=== PATIENT | male | born 1955 | race Caucasian/White ===

== ENCOUNTER 2016-07-08 16:49 | Emergency (ER) | payer BC ==
[~2016-07-08] VITALS: Ht 177.8 cm; Wt 93.2 kg
[~2016-07-08 16:49] MED LIST: LIPITOR 10MG10 MG PO; LORTAB 5/500 501 TAB PO; MOTRIN 800800 MG/TAB PO; NORCO 325 MG-51 TAB PO; ZESTRIL 10MG10 MG PO; [UNRECOGNIZED DRUG - OTHER]
[2016-07-08 16:57] VITALS: BP 128/87; TEMP 98.1
[2016-07-08 18:12] VITALS: PULSE 86
== END 2016-07-08 18:18 | disposition home or self-care (01) ==
LOC: COL.ER 16:49
DX: S61.211A Laceration without foreign body of left index finger without damage to nail, initial encounter (principal); Z23 Encounter for immunization; W29.8XXA Contact with other powered hand tools and household machinery, initial encounter; Y92.009 Unspecified place in unspecified non-institutional (private) residence as the place of occurrence of the external cause

== ENCOUNTER 2016-07-15 11:25 | Emergency (ER) | payer BC ==
[2016-07-15 11:29] VITALS: BP 129/98; PULSE 80; TEMP 98.7
== END 2016-07-15 11:31 | disposition home or self-care (01) ==
LOC: COL.ER 11:25
DX: Z48.02 Encounter for removal of sutures (principal)

== ENCOUNTER 2017-01-13 22:53 | Emergency (ER) | payer BC ==
[~2017-01-13] VITALS: Ht 177.8 cm; Wt 93.2 kg
[2017-01-13 22:55] VITALS: TEMP 98.8
[2017-01-13 23:26] LABS: PH 5 (5-8); SQUAMOUS EPITHELIAL 0-2 /hpf; URINE APPEARANCE Hazy; URINE BACTERIA None Seen /hpf; URINE BILIRUBIN Negative (NEGATIVE); URINE BLOOD 3+ (NEGATIVE); URINE COLOR Yellow; URINE GLUCOSE Negative (NEGATIVE); URINE KETONE Trace (NEGATIVE); URINE RBC >50 /hpf; URINE UROBILINOGEN Negative (NEGATIVE); URINE WBC None Seen /hpf
[2017-01-13 23:29] LABS: BASO # 0.1 (0.0-0.2); BASO % 0.7 % (0.0-2.0); EOS # 0.1 (0.0-0.7); EOS % 0.9 % (0-4.0); GRAN # 4.9 (1.4-6.5); GRAN % 60.1 % (42.2-75.2); HEMATOCRIT 44.4 % (42.0-52.0); HEMOGLOBIN 15.3 g/dl (13.5-18.0); LYMPH % 25.3 % (20.0-51.0); MEAN CELL VOLUME 91 fl (80.0-100.0); MEAN CORPUSCULAR HEMOGLOBIN 31 pg (27.0-31.0); MEAN CORPUSCULAR HGB CONC 35 g/dl (33.0-37.0); MEAN PLATELET VOLUME 9.8 fl (7.4-10.4); MONO % 12.8 % (1.7-9.3); PLATELET COUNT 196 K/mm3 (130-400); RED BLOOD COUNT 4.88 M/mm3 (4.20-5.60); REDCELL DISTRIBUTION WIDTH-CV 12.8 % (11.5-14.5); WHITE BLOOD COUNT 8.1 K/mm3 (4.8-10.8)
[2017-01-13 23:42] LABS: ADJUSTED CALCIUM 9.2 mg/dL (8.4-10.2); ALANINE AMINOTRANSFERASE 29 U/L (21-72); ALBUMIN 4.6 gm/dL (3.5-5.0); ALKALINE PHOSPHATASE 128 U/L (50-136); ANION GAP 12 mmol/L (7-16); BILIRUBIN,TOTAL 0.8 mg/dL (0.0-1.0); BLOOD UREA NITROGEN 16 mg/dL (9-20); C-REACTIVE PROTEIN < 0.5 mg/dL (0.0-0.9); CALCIUM 9.7 mg/dL (8.4-10.2); CARBON DIOXIDE 23 mmol/L (22-30); CHLORIDE 104 mmol/L (98-107); CREATININE, serum 1.44 mg/dL (0.66-1.25); GLUCOSE 135 mg/dL (74-106); POTASSIUM 3.8 mmol/L (3.4-5.0); SODIUM 140 mmol/L (137-145); TOTAL PROTEIN 7.5 gm/dL (6.4-8.2)
[2017-01-14] MEDS ORDERED: PERCOCET 325 MG1 TA2 PO (01:40)
[2017-01-14 01:52] VITALS: BP 142/86; PULSE 80
== END 2017-01-14 01:55 | disposition home or self-care (01) ==
LOC: COL.ER 22:53
PROVIDERS: Nurse Practitioner
DX: N20.1 Calculus of ureter (principal); I10 Essential (primary) hypertension; E78.5 Hyperlipidemia, unspecified
CPT/HCPCS: J1170; J1885; J7030

== ENCOUNTER 2017-01-15 13:18 | Observation (INO) | payer BC ==
[2017-01-15] VITALS (10 sets, daily range): BP systolic 113–148; BP diastolic 76–94; PULSE 53–74; TEMP 97.8–98.9
[~2017-01-15] VITALS: Ht 177.8 cm; Wt 86.4 kg
[~2017-01-15 13:18] MED LIST changes: +PERCOCET 325 MG1 TA2 PO
[2017-01-15 21:16] LABS: PH 7 (5-8); SQUAMOUS EPITHELIAL 0-2 /hpf; URINE APPEARANCE Hazy; URINE BACTERIA Rare /hpf; URINE BILIRUBIN Negative (NEGATIVE); URINE BLOOD 3+ (NEGATIVE); URINE COLOR Yellow; URINE GLUCOSE Negative (NEGATIVE); URINE KETONE Negative (NEGATIVE); URINE RBC >50 /hpf; URINE UROBILINOGEN Negative (NEGATIVE); URINE WBC 20-50 /hpf
[2017-01-16 00:55] VITALS: BP 114/68; PULSE 55
[2017-01-16 06:07] VITALS: BP 100/68; PULSE 60; TEMP 98
[2017-01-16 09:25] VITALS: BP 126/74; PULSE 55; TEMP 98.5
[2017-01-16] MEDS ORDERED: CIPRO 500MG TA500 MG PO (10:51)
[2017-01-16] MEDS ORDERED: COLACE 100100 MG/CAP PO (10:51)
== END 2017-01-16 12:15 | disposition home or self-care (01) ==
LOC: SURG 13:18
PROVIDERS: Urology
DX: N20.1 Calculus of ureter (principal); I10 Essential (primary) hypertension; K64.9 Unspecified hemorrhoids; R06.83 Snoring
CPT/HCPCS: C1726; C1769; C2617; G0378; G0379; J0690; J1100; J1885; J2270; J2405; J2704; J2765; J3010; J7120; Q9967

== ENCOUNTER → 2018-12-01 | Outpatient (CLI) | payer BC ==
[~2018-12-01] MED LIST changes: +CIPRO 500MG TA500 MG PO; +COLACE 100100 MG/CAP PO
== END ==
LOC: COL.RAD 13:33
DX: R42 Dizziness and giddiness (principal)

== ENCOUNTER 2019-01-28 12:44 | Day surgery (SDC) | payer BC ==
[2019-01-28] VITALS (8 sets, daily range): BP systolic 112–139; BP diastolic 86–107; PULSE 66–89; TEMP 99
[~2019-01-28] VITALS: Ht 177.8 cm; Wt 98.0 kg
[2019-01-28] MEDS ORDERED: ASPIRIN E.C. 8181 MG PO (13:00)
[2019-01-28] MEDS ORDERED: VITAMIN C500 MG PO (13:00)
[2019-01-28] MEDS ORDERED: FISH OIL 500 M1 EAC1 PO (13:06)
[2019-01-28 13:25] LABS: HEMATOCRIT 44.7 % (42.0-52.0); HEMOGLOBIN 15.3 g/dl (13.5-18.0); MEAN CELL VOLUME 93 fl (80.0-100.0); MEAN CORPUSCULAR HEMOGLOBIN 32 pg (27.0-31.0); MEAN CORPUSCULAR HGB CONC 34 g/dl (33.0-37.0); PLATELET COUNT 159 K/mm3 (130-400); RED BLOOD COUNT 4.79 M/mm3 (4.20-5.60); REDCELL DISTRIBUTION WIDTH-CV 12.8 % (11.5-14.5)
[2019-01-28 13:30] LABS: PROTHROMBIN TIME 11.5 SECONDS (9.7-12.8)
[2019-01-28 13:35] LABS: CREATININE, serum 1.03 (0.66-1.25); POTASSIUM 4.1 mmol/L (3.4-5.0)
== END 2019-01-28 18:30 | disposition home or self-care (01) ==
LOC: COL.CAR 12:44
PROVIDERS: Internal Medicine Cardiovascular Disease
DX: R42 Dizziness and giddiness (principal); I10 Essential (primary) hypertension; M23.207 Derangement of unspecified meniscus due to old tear or injury, left knee; E78.2 Mixed hyperlipidemia; R94.39 Abnormal result of other cardiovascular function study; Z79.82 Long term (current) use of aspirin; Z80.9 Family history of malignant neoplasm, unspecified; Z83.3 Family history of diabetes mellitus; Z82.3 Family history of stroke; Z82.49 Family history of ischemic heart disease and other diseases of the circulatory system
CPT/HCPCS: C1769; J1644; J2250; J3010; Q9967

== ENCOUNTER 2021-08-23 16:12 | Emergency (ER) | payer BC ==
[~2021-08-23] VITALS: Ht 177.8 cm; Wt 100.0 kg
[~2021-08-23 16:12] MED LIST changes: +ASPIRIN E.C. 8181 MG PO; +FISH OIL 500 M1 EAC1 PO; +VITAMIN C500 MG PO
[2021-08-23 16:23] VITALS: TEMP 98.5
[2021-08-23] MEDS ORDERED: AMOXICILLIN 8751 TAB PO (20:05)
[2021-08-23] MEDS ORDERED: NORCO 325 MG-51 TAB PO (20:13)
[2021-08-23 20:40] VITALS: BP 141/90; PULSE 74
== END 2021-08-23 20:40 | disposition home or self-care (01) ==
LOC: COL.ER 16:12
DX: R05.9 Cough, unspecified (principal)

== ENCOUNTER 2023-11-18 03:01 | Observation (INO) | payer MEDICARE, BC ==
[~2023-11-18 03:01] MED LIST changes: +AMOXICILLIN 8751 TAB PO
[2023-11-18] MEDS ORDERED: Iohexol 300 - 100 ML VIAL IV ONE (05:35)
== END 2023-11-18 17:15 | disposition home or self-care (01) ==
LOC: COL.ER 03:01 → MEDICAL 08:00
PROVIDERS: ADMIT Internal Medicine
DX: R07.89 Other chest pain (principal); R79.89 Other specified abnormal findings of blood chemistry; Z85.46 Personal history of malignant neoplasm of prostate; Z90.79 Acquired absence of other genital organ(s)
CPT/HCPCS: A9500-JZ; Q9967